=== PATIENT | female | born 1960 | race African-American/Black ===

== ENCOUNTER 2017-02-21 19:50 | Emergency (ER) | payer OTHER, BC ==
[~2017-02-21] VITALS: Ht 167.6 cm; Wt 109.9 kg
[2017-02-21] MEDS ORDERED: ULTRAM50 MG PO (20:59)
[2017-02-21 21:24] VITALS: BP 155/90
== END 2017-02-21 21:24 | disposition home or self-care (01) ==
LOC: EME 19:50
DX: S90.01XA Contusion of right ankle, initial encounter (principal); W31.89XA Contact with other specified machinery, initial encounter; Y92.63 Factory as the place of occurrence of the external cause; Y99.0 Civilian activity done for income or pay; E11.9 Type 2 diabetes mellitus without complications
CPT/HCPCS: 73590; 73610; 99281; 99284

== ENCOUNTER 2018-02-09 17:06 | Emergency (ER) | payer BC ==
[~2018-02-09] VITALS: Ht 167.6 cm; Wt 110.7 kg
[~2018-02-09 17:06] MED LIST: ULTRAM50 MG PO
[2018-02-09 18:35] LABS: HEMATOCRIT 38.1 % (36.0-46.0); HEMOGLOBIN 12.3 G/DL (11.9-15.5); MCH 28.1 PG (29.0-34.0); MCHC 32.3 G/DL (30.0-36.0); MCV 87.2 FL (83-99); PLATELET COUNT 286 K/uL (156-360); RBC DIS.WIDTH-CV 13.8 % (11.8-14.6); RBC DIS.WIDTH-SD 44.2 % (39-53); RED BLOOD COUNT 4.37 M/uL (3.80-5.20); WHITE BLOOD COUNT 6.9 K/uL (4.1-10.2)
[2018-02-09 18:53] LABS: ALBUMIN 3.9 g/dL (3.2-4.8)
[2018-02-09 18:54] LABS: CHLORIDE 104 mEq/L (99-109); POTASSIUM 4.1 mEq/L (3.7-5.4); SODIUM 138 mEq/L (136-147)
[2018-02-09 18:56] LABS: GLUCOSE 232 mg/dL (70-99); TOTAL PROTEIN 7.5 g/dL (6.4-8.3)
[2018-02-09 18:58] LABS: TOTAL BILIRUBIN 0.2 mg/dL (0.0-1.0)
[2018-02-09 18:59] LABS: ALKALINE PHOSPHATASE 96 IU/L (3-129); CREATININE 1.2 mg/dL (0.6-1.3); GFR ESTIMATE (CALCULATED) > 59 mL/min/
[2018-02-09 19:01] LABS: AST (GOT) 25 IU/L (2-34); TROP-I INTERPRETATION NEGATIVE; TROPONIN-I < 0.01 ng/mL (0.0-0.30); UREA NITROGEN (BUN) 24 mg/dL (9-23)
[2018-02-09 19:02] LABS: ALT (GPT) 28 IU/L (3-49)
[2018-02-09 19:08] LABS: QUANTITATIVE HCG < 4.0 MIU/ML
[2018-02-09 20:57] LABS: APPEARANCE CLEAR ((CLEAR)); BILIRUBIN NEGATIVE; BLOOD NEGATIVE; COLOR STRAW ((YELLOW)); GLUCOSE (STRIP) >=500; KETONES NEGATIVE; LEUKOCYTES NEGATIVE; NITRITE NEGATIVE; PROTEIN (STRIP) NEGATIVE; SPECIFIC GRAVITY 1.044 (1.000-1.030); UCUL ADDED? NO; UROBILINOGEN 0.2 MG/DL (0.2-1.0)
[2018-02-09 22:40] LABS: TROP-I INTERPRETATION NEGATIVE; TROPONIN-I < 0.01 ng/mL (0.0-0.30)
[2018-02-09 23:01] VITALS: BP 171/82
== END 2018-02-09 23:02 | disposition home or self-care (01) ==
LOC: EME 17:06
PROVIDERS: Physician Assistant
DX: R07.89 Other chest pain (principal); M54.9 Dorsalgia, unspecified; E11.9 Type 2 diabetes mellitus without complications; E78.5 Hyperlipidemia, unspecified; I10 Essential (primary) hypertension; Z86.19 Personal history of other infectious and parasitic diseases
CPT/HCPCS: 71275; 80053; 81003; 84484; 84702; 85027; 93005; 99281; 99284; J1885; J7030